=== PATIENT | female | born 2000 | race Caucasian/White ===

== ENCOUNTER 2022-08-01 22:20 | Emergency (ER) | payer BC ==
[2022-08-01] MEDS ORDERED: Mag-Al Plus 1200 MG/1200 MG/120 MG/30 ML UDCUP ONE (22:54)
[2022-08-01] MEDS ORDERED: Lidocaine Viscous Sol 2% 15 ml UD Cup ONE (22:55)
[2022-08-01 23:39] LABS: #Basophils 0.1 10x3/uL (0.0-0.2); #Eosinphils 0.2 10x3/uL (0.0-0.5); #Monocytes 0.5 10x3/uL (0.0-1.1); %Basophils 1.4 % (0.0-2.0); %Eosinophils 3.2 % (0.0-6.0); %Lymphocytes 33.3 % (18.0-47.0); %Monocytes 8.8 % (0.0-10.0); %Neutrophils 53.1 % (40.0-75.0); Hemoglobin 13.9 g/dL (12.0-15.5); Mean Corpuscular HGB CONC 34.6 g/dL (32.0-36.0); Mean Corpuscular Hemoglobin 31.7 pg (27.0-33.0); Mean Corpuscular Volume 91.8 fl (81.6-98.3); Mean Platelet Volume 10.3 fl (7.4-10.4); Platelet Count 204 10x3/uL (150-450); RBC Distribution Width 11.9 % (11.5-14.5); Red Blood Cell (RBC) Count 4.38 10x6/uL (3.90-5.03); White Blood Cell (WBC) Count 5.6 10x3/uL (3.5-10.5)
[2022-08-01 23:42] LABS: ALT (SGPT) 8 U/L (8-55); AST (SGOT) 14 U/L (5-34); Albumin 4.4 g/dL (3.5-5.0); Alkaline Phosphatase 62 U/L (40-110); Anion Gap 10 mmol/L (10-20); BUN (Urea Nitrogen) 7 mg/dL (7.0-18.7); Bilirubin, Total 0.5 mg/dL (0.2-1.2); Calc. Creatinine Clearance 0 mL/min (70-130); Calcium 9.3 mg/dL (7.8-10.44); Carbon Dioxide 28 mmol/L (22-29); Chloride 107 mmol/L (98-107); Estimated GFR 90; Globulin 2.6 g/dL (2.4-3.5); Glucose 103 mg/dL (70-105); Lipase 20 U/L (8-78); Potassium 4.1 mmol/L (3.5-5.1); Sodium 141 mmol/L (136-145)
== END 2022-08-02 00:30 | disposition home or self-care (01) ==
LOC: CSHERS 22:20
DX: N30.00 Acute cystitis without hematuria (principal); T36.8X5A Adverse effect of other systemic antibiotics, initial encounter
CPT/HCPCS: 80053; 83690; 85025; 99284